=== PATIENT | female | born 1965 ===

== ENCOUNTER 2019-03-01 10:07 | Observation (INO) | payer OTHER ==
--- NOTE | 2019-03-01 10:41 | PDOC ---
History of Present Illness - General Chief Complaint: Chest Pain Stated Complaint: LOWER BACK PAIN Time Seen by Provider: 03/01/19 10:41 - History of Present Illness Initial Comments: 03/01/19 10:43 53 year old female, with a significant past medical history of HTN (now compliant on lisinopril 10 daily) who presents with 3 days of back pain radiating to the chest that is pressure like and waxes and wanes. The patient reports some associated nausea but denies diaphoresis or lightheadedness. She reports a cough for 1 month but denies any recent fever, n/v/d/c, abdominal pain or any other complaints. ROS GENERAL/CONSTITUTIONAL: No fever or chills. No weakness. HEAD, EYES, EARS, NOSE AND THROAT: No sore throat. CARDIOVASCULAR: +chest pain, No shortness of breath RESPIRATORY: No cough, wheezing, or hemoptysis. GASTROINTESTINAL: No nausea, vomiting, diarrhea or constipation. GENITOURINARY: No dysuria, frequency, or change in urination. MUSCULOSKELETAL: No joint or muscle swelling or pain. No neck or back pain. SKIN: No rash NEUROLOGIC: No headache, vertigo, loss of consciousness, or change in strength/ sensation. ENDOCRINE: No increased thirst. No abnormal weight change HEMATOLOGIC/LYMPHATIC: No anemia, easy bleeding, or history of blood clots. PE GENERAL: Awake, alert, and fully oriented, in no acute distress HEAD: No signs of trauma, normocephalic, atraumatic EYES: EOMI, sclera anicteric, conjunctiva clear ENT: oropharynx clear without exudates. Moist mucosa NECK: Normal ROM, supple LUNGS: No distress, speaks full sentences, clear to auscultation bilaterally HEART: Regular rate and rhythm, normal S1 and S2, no murmurs, rubs or gallops, peripheral pulses normal and equal bilaterally. ABDOMEN: Soft, nontender. No guarding, no rebound. No masses BACK: nontender to palpation EXTREMITIES : Normal inspection, Normal range of motion, no edema. No clubbing or cyanosis. NEUROLOGICAL: Cranial nerves II through XII grossly intact. Normal speech, no focal sensorimotor deficits SKIN: Warm, Dry, normal turgor, no rashes or lesions noted MDM DDX including but not limited to: pleuritic pain r/o acs r/o dissection ED Course: labs wnl CT chest -negative for dissection Plan for admission as patient with chest pain and HTN will keep on tele and have cardiology rebeca Toro PGY2 Emergency Medicine Past History - Past Medical History Allergies/Adverse Reactions: Allergies Allergy/AdvReac Type Severity Reaction Status Date / Time No Known Allergies Allergy Verified 03/01/19 10:22 Home Medications: Ambulatory Orders Lisinopril 10 mg PO DAILY 03/01/19 COPD: No HTN: Yes - Psycho Social/Smoking Cessation Hx Smoking History: Never smoked Have you smoked in the past 12 months: No Hx Alcohol Use: Yes Drug/Substance Use Hx: No Substance Use Type: None *Physical Exam - Vital Signs Last Vital Signs Temp Pulse Resp BP Pulse Ox 98.0 F 76 16 187/77 H 100 03/01/19 10:16 03/01/19 10:16 03/01/19 10:16 03/01/19 10:37 03/01/19 10:16 ED Treatment Course - LABORATORY CBC & Chemistry Diagram: 03/01/19 11:00 03/01/19 10:44
[2019-03-01] MEDS ORDERED: LABETALOL HCL 5 MG/1 ML (100MG/20 ML VIAL) IVPUSH ONE (11:01)
[2019-03-01 11:06] LABS: BASO % 0.7 % (0-2.0); EOS % 1.2 % (0-4.5); HEMATOCRIT 40.2 % (32.4-45.2); HEMOGLOBIN 13.4 GM/dL (10.7-15.3); LYMPH % 27.6 % (8-40); MCH 29.1 pg (25.7-33.7); MCHC 33.5 g/dl (32.0-36.0); MEAN CELL VOLUME 87.1 fl (80-96); MEAN PLT VOLUME 8.5 fl (7.5-11.1); MONO % 5.1 % (3.8-10.2); NEUT % 65.4 % (42.8-82.8); PLATELET COUNT 314 K/MM3 (134-434); RBC 4.61 M/mm3 (3.60-5.2); RDW 13.3 % (11.6-15.6)
[2019-03-01 11:17] LABS: HCG,QUALITATIVE URINE Negative
[2019-03-01 11:19] LABS: EPI CELLS 1.7 /HPF (0-5/HPF); HYALINE CASTS 1 /lpf (0-8); URINE APPEARANCE CLEAR; URINE BACTERIA 37.2 /hpf (NEGATIVE); URINE BILIRUBIN NEGATIVE (NEGATIVE); URINE COLOR YELLOW; URINE GLUCOSE (UA) NEGATIVE (NEGATIVE); URINE KETONE NEGATIVE (NEGATIVE); URINE LEUK ESTERASE 1+ (NEGATIVE); URINE NITRITE NEGATIVE (NEGATIVE); URINE PROTEIN NEGATIVE (NEGATIVE); URINE RBC 0 /hpf (0-4); URINE UROBILINOGEN 0.2 mg/dL (0.2-1.0); URINE WBC 5 /hpf (0-5)
--- NOTE | 2019-03-01 11:34 | PDOC ---
Documentation entered by Latrice Sanchez SCRIBE, acting as scribe for Wilmer Carnes MD. Wilmer Carnes MD: This documentation has been prepared by the Daniel velázquez Brenda, SCRIBE, under my direction and personally reviewed by me in its entirety. I confirm that the documentation accurately reflects all work, treatment, procedures, and medical decision making performed by me. Attending Attestation - Resident Resident Name: Chanell Toro - ED Attending Attestation I have performed the following: I have examined & evaluated the patient, The case was reviewed & discussed with the resident, I agree w/resident's findings & plan, Exceptions are as noted - HPI HPI: 03/01/19 10:59 53y F hx of htn presents with back pain for the past 3 days that radiates to the chest, that waxes and wanes. Patient states that her lab's episode of pain started this morning when she was sleeping, and has since resolved. The patient denies any associated focal numbness, tingling, weakness, diaphoresis, shortness of breath. The patient does endorse having mild nausea with her pain. The pain seems to come intermittently and randomly it is not associated with movement, exertion, leg swelling, coughing, hemoptysis, fever, chills. Patient does endorse having similar pain in the past. pt is currently asymptomatic. Upon arrival the patient was noted to be significantly hypertensive. Patient states she is compliant with medications. PMD:S Alisha Physical Exam: GENERAL: The patient is awake, alert, and fully oriented, Nontoxic - in no acute distress. HEAD: Normocephalic, atraumatic. EYES: extraocular movements intact, sclera anicteric, conjunctiva clear. ENT: Normal voice, Moist mucous membranes. NECK: Normal range of motion, supple LUNGS: Breath sounds equal, clear to auscultation bilaterally. No wheezes, no rhonchi, no rales. HEART: Regular rate and rhythm, normal S1 and S2 without murmur, rub or gallop. ABDOMEN: Soft, nontender, No guarding, no rebound. No CVA tenderness EXTREMITIES: Normal range of motion, no edema. Moving all 4 extremities spontaneously and symmetrically NEUROLOGICAL: No facial assymetry, Normal speech, PSYCH: Normal mood, normal affect. SKIN: Warm, Dry, normal turgor, Differential for the patient's symptoms includes hypertensive emergency, ACS, aortic dissection, pancreatitis. Will obtain blood work, chest x-ray anticipate CTA to screen for dissection We will give the patient labetalol for blood pressure control Heart Score/ECG Review - ECG Impressions Comment:: 03/01/19 11:33 Twelve-lead EKG was performed and reviewed by me. There is normal sinus rhythm with a normal rate. rate of 73 The axis is normal. The intervals are normal. There is normal R wave progression There are no ST or T wave abnormalities. Impression: Normal twelve-lead EKG
[2019-03-01 11:50] LABS: ALBUMIN 3.7 g/dl (3.4-5.0); BILIRUBIN,TOTAL 0.6 mg/dL (0.2-1); BLOOD UREA NITROGEN 10.5 mg/dL (7-18); CALCIUM 8.9 mg/dL (8.5-10.1); CREATININE 0.5 mg/dL (0.55-1.3); POTASSIUM 3.9 mmol/L (3.5-5.1)
[2019-03-01] MEDS ORDERED: amLODIPine BESYLATE 5 MG TABLET (FP) PO ONE (16:06)
[2019-03-01] MEDS ORDERED: amLODIPine BESYLATE 5 MG TABLET (FP) ONE (16:10)
--- NOTE | 2019-03-01 17:09 | HP ---
CHIEF COMPLAINT: back pain, chest pain PCP: HISTORY OF PRESENT ILLNESS: Patient is a 53 year old female with history of hypertension presents with complaint of back pain. Patient endorses pain has been ongoing for the past three days without clear inciting features. States pain radiates to her right sided chest. Endorses the pain is worsened with non-productive cough. She admits taking Ibuprofen yesterday which was temporarily palliative. Pain occurs during rest, as well as exertion however is not associated with shortness of breath. Denies subjective fevers, chills, shortness of breath, palpitations, abdominal pain, nausea, vomiting. Currently, patient denies any chest pain. ER course was notable for: (1) BP 205/ 99 -> 166/ 85 (2) EKG reveals normal sinus rhythm at 73BPM. Initial troponin 0,02 (3) Recent Travel: denies PAST MEDICAL HISTORY: hypertension PAST SURGICAL HISTORY: denies Social History: Lives with her son. Smoking: Alcohol: Drugs: Allergies No Known Allergies Allergy (Verified 03/01/19 10:22) HOME MEDICATIONS: Home Medications Medication Instructions Recorded Lisinopril 10 mg PO DAILY 03/01/19 REVIEW OF SYSTEMS CONSTITUTIONAL: Absent: fever, chills, diaphoresis, generalized weakness, malaise, loss of appetite, weight change HEENT: Absent: rhinorrhea, nasal congestion, throat pain, throat swelling, difficulty swallowing, mouth swelling, ear pain, eye pain, visual changes CARDIOVASCULAR: Absent: chest pain, syncope, palpitations, irregular heart rate, lightheadedness , peripheral edema RESPIRATORY: Absent: cough, shortness of breath, dyspnea with exertion, orthopnea, wheezing, stridor, hemoptysis GASTROINTESTINAL: Absent: abdominal pain, abdominal distension, nausea, vomiting, diarrhea, constipation, melena, hematochezia GENITOURINARY: Absent: dysuria, frequency, urgency, hesitancy, hematuria, flank pain, genital pain MUSCULOSKELETAL: Absent: myalgia, arthralgia, joint swelling, back pain, neck pain SKIN: Absent: rash, itching, pallor HEMATOLOGIC/IMMUNOLOGIC: Absent: easy bleeding, easy bruising, lymphadenopathy, frequent infections ENDOCRINE: Absent: unexplained weight gain, unexplained weight loss, heat intolerance, cold intolerance NEUROLOGIC: Absent: headache, focal weakness or paresthesias, dizziness, unsteady gait, seizure, mental status changes, bladder or bowel incontinence PSYCHIATRIC: Absent: anxiety, depression, suicidal or homicidal ideation, hallucinations. PHYSICAL EXAMINATION Vital Signs - 24 hr 03/01/19 03/01/19 03/01/19 10:16 10:37 11:18 Temperature 98.0 F Pulse Rate 76 Pulse Rate [ Left] Respiratory 16 Rate Blood Pressure 205/99 H Blood Pressure 187/77 H 168/76 [Left Arm] O2 Sat by Pulse 100 Oximetry (%) 03/01/19 03/01/19 03/01/19 11:36 12:14 14:47 Temperature 97.7 F Pulse Rate Pulse Rate [ 68 Left] Respiratory 18 Rate Blood Pressure Blood Pressure 147/69 173/91 H 166/85 [Left Arm] O2 Sat by Pulse 98 Oximetry (%) GENERAL: Awake, alert, and fully oriented, in no acute distress. HEAD: Normal with no signs of trauma. EYES: Pupils equal, round and reactive to light, extraocular movements intact, sclera anicteric, conjunctiva clear. No lid lag. EARS, NOSE, THROAT: Ears normal, nares patent, oropharynx clear without exudates. Moist mucous membranes. NECK: Normal range of motion, supple without lymphadenopathy, JVD, or masses. LUNGS: Breath sounds equal, clear to auscultation bilaterally. No wheezes, and no crackles. No accessory muscle use. HEART: Regular rate and rhythm, normal S1 and S2 without murmur, rub or gallop. ABDOMEN: Soft, nontender, not distended, normoactive bowel sounds, no guarding, no rebound, no masses. No hepatomegaly or splenomegaly. MUSCULOSKELETAL: Normal range of motion at all joints. No bony deformities or tenderness. No CVA tenderness. UPPER EXTREMITIES: 2+ pulses, warm, well-perfused. No cyanosis. No clubbing. No peripheral edema. LOWER EXTREMITIES: 2+ pulses, warm, well-perfused. No calf tenderness. No peripheral edema. NEUROLOGICAL: Cranial nerves II-XII intact. Normal speech. Normal gait. PSYCHIATRIC: Cooperative. Good eye contact. Appropriate mood and affect. SKIN: Warm, dry, normal turgor, no rashes or lesions noted, normal capillary refill. Laboratory Results - last 24 hr 03/01/19 03/01/19 03/01/19 10:44 11:00 11:05 WBC 10.0 RBC 4.61 Hgb 13.4 Hct 40.2 MCV 87.1 MCH 29.1 MCHC 33.5 RDW 13.3 Plt Count 314 MPV 8.5 Absolute Neuts (auto) 6.6 Neutrophils % 65.4 Lymphocytes % 27.6 D Monocytes % 5.1 Eosinophils % 1.2 D Basophils % 0.7 Nucleated RBC % 0 Sodium 139 Potassium 3.9 Chloride 108 H Carbon Dioxide 24 Anion Gap 7 L BUN 10.5 Creatinine 0.5 L Est GFR (CKD-EPI)AfAm 128.07 Est GFR (CKD-EPI)NonAf 110.50 Random Glucose 94 Calcium 8.9 Total Bilirubin 0.6 AST 25 ALT 37 Alkaline Phosphatase 114 Creatine Kinase 304 H Creatine Kinase Index 1.4 CK-MB (CK-2) 4.4 H Troponin I 0.04 Total Protein 8.0 Albumin 3.7 Lipase 173 Urine Color Yellow Urine Appearance Clear Urine pH 6.0 Ur Specific [place] 1.008 L Urine Protein Negative Urine Glucose (UA) Negative Urine Ketones Negative Urine Blood Negative Urine Nitrite Negative Urine Bilirubin Negative Urine Urobilinogen 0.2 Ur Leukocyte Esterase 1+ H Urine WBC (Auto) 5 Urine RBC (Auto) 0 Urine Casts (Auto) 1 U Epithel Cells (Auto) 1.7 Urine Bacteria (Auto) 37.2 Urine HCG, Qual Negative 03/01/19 14:28 WBC RBC Hgb Hct MCV MCH MCHC RDW Plt Count MPV Absolute Neuts (auto) Neutrophils % Lymphocytes % Monocytes % Eosinophils % Basophils % Nucleated RBC % Sodium Potassium Chloride Carbon Dioxide Anion Gap BUN Creatinine Est GFR (CKD-EPI)AfAm Est GFR (CKD-EPI)NonAf Random Glucose Calcium Total Bilirubin AST ALT Alkaline Phosphatase Creatine Kinase Creatine Kinase Index CK-MB (CK-2) Troponin I 0.03 Total Protein Albumin Lipase Urine Color Urine Appearance Urine pH Ur Specific [place] Urine Protein Urine Glucose (UA) Urine Ketones Urine Blood Urine Nitrite Urine Bilirubin Urine Urobilinogen Ur Leukocyte Esterase Urine WBC (Auto) Urine RBC (Auto) Urine Casts (Auto) U Epithel Cells (Auto) Urine Bacteria (Auto) Urine HCG, Qual ASSESSMENT/PLAN: Patient is a 53 year old female with history of hypertension presents with complaint of back pain, chest pain. Hypertensive urgency -Patient presented with BP 205/99 that resolved to 166/ 85 with Labetalol. Patient endorsed chest pain at that time, however has resolved upon my encounter -Troponin 0,04, 0.03. Will obtain additional Troponin to document three negative -EKG reveals normal sinus rhythm at 73BPM. Negative ischemic changes -Lisinopril increased to 40mg PO daily -Begin Amlodipine 5mg PO daily. -Continue cardiac telemetery monitoring -Cardiology evaluation (Dr. Macdonald) appreciated -Cardiac transthoracic ECHO Atypical chest pain -Currently resolved. Not reproducible upon palpation. -Cardiac monitoring, Cardiology evaluation (Dr. Rooney) FEN -No IV fluids indicated -Follow BMP -Sodium modified diet Prophylaxis -Lovenox 40mg subq daily Disposition -Telemetry observation. Visit type - Emergency Visit Emergency Visit: Yes ED Registration Date: 03/01/19 Care time: The patient presented to the Emergency Department on the above date and was hospitalized for further evaluation of their emergent condition. - New Patient This patient is new to me today: Yes Date on this admission: 03/01/19 - Critical Care Critical Care patient: No ATTENDING PHYSICIAN STATEMENT I saw and evaluated the patient. I reviewed the resident's note and discussed the case with the resident. I agree with the resident's findings and plan as documented. SUBJECTIVE: OBJECTIVE: ASSESSMENT AND PLAN:
[2019-03-01] MEDS: amLODIPine BESYLATE 5 MG TABLET (FP) PO SCH (17:17)
--- NOTE | 2019-03-01 18:01 | PN ---
Teaching Attending Note Name of Resident: Frederic Shay ATTENDING PHYSICIAN STATEMENT I saw and evaluated the patient. I reviewed the resident's note and discussed the case with the resident. I agree with the resident's findings and plan as documented. SUBJECTIVE: Chest pain resolved. Denies any palpitations, headache, lightheadedness, dizziness, nausea, vomiting. OBJECTIVE: Afebrile, Hemodynamically Stable. Last Vital Signs Temp Pulse Resp BP Pulse Ox 97.7 F 68 18 166/85 98 03/01/19 14:47 03/01/19 14:47 03/01/19 14:47 03/01/19 14:47 03/01/19 14:47 HEENT - Atraumatic, Normocephalic. Heart - S1, S2, SM Lungs - clear to auscultation Abdomen - Soft, non-tender. Bowel Sounds normal. Extremities - no edema, no calf tenderness. Neuro - AAO x 3. tone/Power normal all extremities. Laboratory Results - last 24 hr 03/01/19 03/01/19 03/01/19 10:44 11:00 11:05 WBC 10.0 RBC 4.61 Hgb 13.4 Hct 40.2 MCV 87.1 MCH 29.1 MCHC 33.5 RDW 13.3 Plt Count 314 MPV 8.5 Absolute Neuts (auto) 6.6 Neutrophils % 65.4 Lymphocytes % 27.6 D Monocytes % 5.1 Eosinophils % 1.2 D Basophils % 0.7 Nucleated RBC % 0 Sodium 139 Potassium 3.9 Chloride 108 H Carbon Dioxide 24 Anion Gap 7 L BUN 10.5 Creatinine 0.5 L Est GFR (CKD-EPI)AfAm 128.07 Est GFR (CKD-EPI)NonAf 110.50 Random Glucose 94 Calcium 8.9 Total Bilirubin 0.6 AST 25 ALT 37 Alkaline Phosphatase 114 Creatine Kinase 304 H Creatine Kinase Index 1.4 CK-MB (CK-2) 4.4 H Troponin I 0.04 Total Protein 8.0 Albumin 3.7 Lipase 173 Urine Color Yellow Urine Appearance Clear Urine pH 6.0 Ur Specific [place] 1.008 L Urine Protein Negative Urine Glucose (UA) Negative Urine Ketones Negative Urine Blood Negative Urine Nitrite Negative Urine Bilirubin Negative Urine Urobilinogen 0.2 Ur Leukocyte Esterase 1+ H Urine WBC (Auto) 5 Urine RBC (Auto) 0 Urine Casts (Auto) 1 U Epithel Cells (Auto) 1.7 Urine Bacteria (Auto) 37.2 Urine HCG, Qual Negative 03/01/19 14:28 WBC RBC Hgb Hct MCV MCH MCHC RDW Plt Count MPV Absolute Neuts (auto) Neutrophils % Lymphocytes % Monocytes % Eosinophils % Basophils % Nucleated RBC % Sodium Potassium Chloride Carbon Dioxide Anion Gap BUN Creatinine Est GFR (CKD-EPI)AfAm Est GFR (CKD-EPI)NonAf Random Glucose Calcium Total Bilirubin AST ALT Alkaline Phosphatase Creatine Kinase Creatine Kinase Index CK-MB (CK-2) Troponin I 0.03 Total Protein Albumin Lipase Urine Color Urine Appearance Urine pH Ur Specific [place] Urine Protein Urine Glucose (UA) Urine Ketones Urine Blood Urine Nitrite Urine Bilirubin Urine Urobilinogen Ur Leukocyte Esterase Urine WBC (Auto) Urine RBC (Auto) Urine Casts (Auto) U Epithel Cells (Auto) Urine Bacteria (Auto) Urine HCG, Qual Current Medications Generic Name Dose Route Start Last Admin Trade Name Freq PRN Reason Stop Dose Admin Amlodipine Besylate 5 mg 03/01/19 17:15 03/01/19 17:17 Norvasc - PO Not Given DAILY [facility] Enoxaparin Sodium 40 mg 03/02/19 10:00 Lovenox - SQ DAILY [facility] Lisinopril 40 mg 03/02/19 10:00 Prinivil PO DAILY [facility] Home Medications Medication Instructions Recorded Lisinopril 10 mg PO DAILY 03/01/19 ASSESSMENT AND PLAN: 53 year old female with history of HTN, presents with chest pain, found to have uncontrolled HTN, responded to IV Labetolol, with resolution of chest discomfort. No palpitations, lightheadedness, SOB, nausea. vomiting, diaphoresis. No fever/chills. 1. Uncontrolled HTN Normally on Lisinopril 10mg. Last BP check at PCP 1 month ago, mildly elevated at that time as per patient. Will increase Lisinopril to 40mg and add Norvasc 5mg TSH Telemonitoring 2. Atypical CP, resolved. ECG - NSR, rate 73, no acute changes Trop I neg, will trend. Echo requested. Telemoniotring overnight DVT Px - Lovenox SQ
[2019-03-01 20:49] VITALS: BMI 32.9
[2019-03-01] MEDS ORDERED: IBUPROFEN 400 MG TABLET (FP) PO ONE (20:58)
[2019-03-01] MEDS ORDERED: PT OWN MED DRAWER 7, Y5N ONE (21:03)
[2019-03-02 06:19] LABS: HEMATOCRIT 40.9 % (32.4-45.2); HEMOGLOBIN 13.7 GM/dL (10.7-15.3); MCHC 33.6 g/dl (32.0-36.0); MEAN CELL VOLUME 86.5 fl (80-96); MEAN PLT VOLUME 9.4 fl (7.5-11.1); PLATELET COUNT 308 K/MM3 (134-434); RBC 4.73 M/mm3 (3.60-5.2); RDW 13.6 % (11.6-15.6); WHITE BLOOD COUNT 9.5 K/mm3 (4.0-10.0)
[2019-03-02 06:50] LABS: BLOOD UREA NITROGEN 7.7 mg/dL (7-18); CALCIUM 9.1 mg/dL (8.5-10.1); CREATININE 0.5 mg/dL (0.55-1.3); POTASSIUM 3.9 mmol/L (3.5-5.1)
[2019-03-02] MEDS: amLODIPine BESYLATE 5 MG TABLET (FP) PO SCH (09:23)
[2019-03-02] MEDS: LISINOPRIL 20 MG TABLET (FP) PO SCH (09:23)
[2019-03-02] MEDS: ENOXAPARIN NA (PORCINE) 40 MG/0.4 ML DISP.SYRIN SQ SCH (09:23)
--- NOTE | 2019-03-02 11:24 | CON.CARD ---
Consult Consult Specialty:: Cardiology Referred by:: Medicine Reason for Consultation:: chest pain, HTN - History of Present Illness Chief Complaint: chest pain History of Present Illness: 53F h/o HTN p/w back pain. Has had pain for the last few days prior to admission, radiating to R chest, worse with coughing. Has kurtis taking ibuprofen prior to admission. BP in ER 205/99. Chest and back pain now resolved, no dyspnea, palps, dizziness, edema. - Past Medical History ...LMP: 08/27/18 ...: No - Alcohol/Substance Use Hx Alcohol Use: Yes (social) - Smoking History Smoking history: Never smoked Have you smoked in the past 12 months: No Home Medications - Allergies Allergies/Adverse Reactions: Allergies Allergy/AdvReac Type Severity Reaction Status Date / Time No Known Allergies Allergy Verified 03/01/19 10:22 - Home Medications Home Medications: Ambulatory Orders Lisinopril 10 mg PO DAILY 03/01/19 Family Medical History Family History: Unremarkable Review of Systems - Review of Systems Constitutional: reports: No Symptoms Eyes: reports: No Symptoms HENT: reports: No Symptoms Neck: reports: No Symptoms Cardiovascular: reports: No Symptoms Respiratory: reports: No Symptoms Gastrointestinal: reports: No Symptoms Genitourinary: reports: No Symptoms Musculoskeletal: reports: No Symptoms Integumentary: reports: No Symptoms Neurological: reports: No Symptoms Endocrine: reports: No Symptoms Hematology/Lymphatic: reports: No Symptoms Psychiatric: reports: No Symptoms Vital Signs: Vital Signs Temperature 98.4 F 03/02/19 09:54 Pulse Rate 75 03/02/19 09:54 Respiratory Rate 20 03/02/19 09:54 Blood Pressure 193/84 H 03/02/19 09:54 O2 Sat by Pulse Oximetry (%) 98 03/02/19 09:55 Constitutional: Yes: No Distress, Calm Eyes: Yes: Conjunctiva Clear, EOM Intact HENT: Yes: Atraumatic, Normocephalic Neck: Yes: Supple, Trachea Midline Respiratory: Yes: Regular, CTA Bilaterally Gastrointestinal: Yes: Normal Bowel Sounds, Soft Cardiovascular: Yes: Regular Rate and Rhythm JVD: No Heart Sounds: Yes: S1, S2 Extremities: No: Cold Edema: No Integumentary: No: Jaundice Neurological: Yes: Alert, Oriented Psychiatric: No: Agitated - Other Data Labs, Other Data: CBC, BMP 03/02/19 05:20 03/02/19 05:20 Troponin, BNP 03/01/19 03/01/19 03/01/19 10:44 14:28 21:45 Troponin I 0.04 0.03 0.04 Troponin, BNP 03/01/19 03/01/19 03/01/19 10:44 14:28 21:45 Troponin I 0.04 0.03 0.04 Assessment/Plan EKG: sinus, nl intervals, no ischemic changes CTA chest: no dissection tele: sinus chest pain - trop neg x 3, EKG no ischemic changes - unlikely ACS - CTA chest no dissection - echo pending - atypical symptoms, however will evaluate with nuclear stress test given age, risk factors hypertensive urgency - lisinopril increased to 40 mg daily - amlodipine 5 mg started - monitor BP, uptitrate meds as tolerated
[2019-03-02] MEDS ORDERED: ACETAMINOPHEN 325 MG TABLET (FP) PO PRN (11:58)
--- NOTE | 2019-03-02 13:04 | ECHO ---
Name: CABEZAS, RENETTA Exam:Adult Echocardiogram Study Date: 03/02/2019 09:38 AM Age: 53 yrs Height: 58 in Weight: 160 lb BSA: 1.7 m2 MMode/2D Measurements & Calculations IVSd: 1.0 cm Ao root diam: 2.1 cm LVIDd: 3.7 cm LA dimension: 3.6 cm LVIDs: 2.4 cm ACS: 1.7 cm LVPWd: 1.1 cm EDV(Teich): 57.4 ml LVOT diam: 1.9 cm ESV(Teich): 19.2 ml RV S Manjit: 17.7 cm/sec Doppler Measurements & Calculations MV E max manjit: 72.1 cm/sec Ao V2 max: 196.8 cm/sec MV A max manjit: 107.1 cm/sec Ao max P.5 mmHg MV E/A: 0.67 Ao V2 mean: 140.3 cm/sec MV dec time: 0.19 sec Ao mean P.7 mmHg Ao V2 VTI: 42.5 cm TAMMY(I,D): 1.5 cm2 AI P1/2t: 923.3 msec TAMMY(V,D): 1.5 cm2 AI max manjit: 477.8 cm/sec LV V1 max P.6 mmHg AI max P.3 mmHg LV V1 mean P.7 mmHg AI dec slope: 151.6 cm/sec2 LV V1 max: 106.9 cm/sec LV V1 mean: 78.8 cm/sec LV V1 VTI: 23.9 cm SV(LVOT): 65.5 ml TR max manjit: 204.4 cm/sec TR max P.8 mmHg PA V2 max: 85.4 cm/sec Med Peak E' Manjit: 6.1 cm/sec PA max P.9 mmHg Med E/e': 11.8 Lat Peak E' Manjit: 7.7 cm/sec Lat E/e': 9.4 Procedure A two-dimensional transthoracic echocardiogram with color flow and Doppler was performed. The study w as technically difficult with many images being suboptimal in quality. The patient was in normal sinus r hythm during the exam. Left Ventricle Left ventricular systolic function is normal. Ejection Fraction = 65-70%. E/A reversal consistent wit h but not diagnostic of poor LV compliance. Right Ventricle The right ventricle is normal size. The right ventricular systolic function is normal. Atria Normal left and right atrial size and function. Mitral Valve The mitral valve is normal. There is trace mitral regurgitation. Tricuspid Valve The tricuspid valve is normal. There is trace tricuspid regurgitation. Right ventricular systolic pre ssure is normal. Aortic Valve The aortic valve is not well visualized. There is mild aortic sclerosis.;. The aortic valve opens wel l. The aortic valve is trileaflet. No hemodynamically significant valvular aortic stenosis. Mild aortic regurgitation. Pulmonic Valve The pulmonic valve is not well visualized. The pulmonic valve is not well seen, but is grossly normal . There is no pulmonic valvular regurgitation. Great Vessels The aortic root is normal size. Pericardium/Pleura There is no pericardial effusion. Interpretation Summary Left ventricular systolic function is normal. E/A reversal consistent with but not diagnostic of poor LV compliance The right ventricular systolic function is normal. There is trace mitral regurgitation. There is trace tricuspid regurgitation. There is mild aortic sclerosis.; No hemodynamically significant valvular aortic stenosis. Mild aortic regurgitation. There is no pericardial effusion. MD Jose Torres 03/02/2019 01:03 PM
--- NOTE | 2019-03-02 13:46 | EKG ---
Test Reason : Blood Pressure : / mmHG Vent. Rate : 073 BPM Atrial Rate : 073 BPM P-R Int : 146 ms QRS Dur : 086 ms QT Int : 410 ms P-R-T Axes : 050 025 026 degrees QTc Int : 451 ms NORMAL SINUS RHYTHM NORMAL ECG WHEN COMPARED WITH ECG OF 28-AUG-2017 02:22, NO SIGNIFICANT CHANGE WAS FOUND Confirmed by MD MELO, TANIA ([id number]) on 03/02/2019 1:46:25 PM Referred By: Confirmed By:TANIA ALEJO MD
[2019-03-02] MEDS ORDERED: amLODIPine BESYLATE 5 MG TABLET (FP) PO ONE (17:04)
--- NOTE | 2019-03-02 18:05 | PN ---
Teaching Attending Note Name of Resident: Gladys Robbins ATTENDING PHYSICIAN STATEMENT I saw and evaluated the patient. I reviewed the resident's note and discussed the case with the resident. I agree with the resident's findings and plan as documented. SUBJECTIVE: No fever or chills. No ARIAS. No CP. feels better OBJECTIVE: NAD Cv : RRR Lungs: CTAB Ext : No edema or erythema ASSESSMENT AND PLAN: 53 y/o man with h/o HTN who presented with CP nad was found to have HTN urgency 1- CP: atypical 2- HTN urgency Plan : - cont lisinopril and noravsc . if needed Norvasc can be increased - echo reviewed. - CTA reviewed. - Second half of stress test tomorrow - Lovenox for DVT px
[2019-03-02] MEDS ORDERED: IBUPROFEN 400 MG TABLET (FP) PO PRN (18:07)
--- NOTE | 2019-03-02 19:57 | PN ---
Physical Exam: SUBJECTIVE: Patient seen and examined. Patient complains of back pain that radiates to her RUQ. Only complains of chest pain when coughing. Denies SOB, fever, chills, N/V/D. OBJECTIVE: Vital Signs Period Temp Pulse Resp BP Sys/Morgan Pulse Ox Last 24 Hr 98 F-99.2 F 66-81 18-22 150-193/78-89 96-99 GENERAL: The patient is awake, alert, and fully oriented, in no acute distress. HEAD: Normal with no signs of trauma. EYES: EOMI, no scleral icterus ENT: MMM NECK: Trachea midline, full range of motion, supple. LUNGS: CTA B/L, no accessory muscle use HEART: Regular rate and rhythm, S1, S2 without murmur, rub or gallop. CHEST: no reproducible tenderness to palpation ABDOMEN: Soft, nondistended, normoactive bowel sounds, no guarding. Mild RUQ tenderness to palpation EXTREMITIES: 2+ pulses, warm, well-perfused, no edema. NEUROLOGICAL: Normal speech, gait not observed. PSYCH: Normal mood, normal affect. SKIN: Warm, dry, normal turgor, no rashes or lesions noted Laboratory Results - last 24 hr 03/01/19 03/02/19 03/02/19 21:45 05:20 05:20 WBC 9.5 RBC 4.73 Hgb 13.7 Hct 40.9 MCV 86.5 MCH 29.0 MCHC 33.6 RDW 13.6 Plt Count 308 MPV 9.4 D Sodium 137 Potassium 3.9 Chloride 104 Carbon Dioxide 25 Anion Gap 8 BUN 7.7 Creatinine 0.5 L Est GFR (CKD-EPI)AfAm 128.07 Est GFR (CKD-EPI)NonAf 110.50 Random Glucose 107 H Hemoglobin A1c % Calcium 9.1 Creatine Kinase 217 H Creatine Kinase Index 1.3 CK-MB (CK-2) 2.9 Troponin I 0.04 03/02/19 05:20 WBC RBC Hgb Hct MCV MCH MCHC RDW Plt Count MPV Sodium Potassium Chloride Carbon Dioxide Anion Gap BUN Creatinine Est GFR (CKD-EPI)AfAm Est GFR (CKD-EPI)NonAf Random Glucose Hemoglobin A1c % 5.7 Calcium Creatine Kinase Creatine Kinase Index CK-MB (CK-2) Troponin I Active Medications Generic Name Dose Route Start Last Admin Trade Name Freq PRN Reason Stop Dose Admin Amlodipine Besylate 10 mg 03/03/19 10:00 Norvasc - PO DAILY JESSICA Enoxaparin Sodium 40 mg 03/02/19 10:00 03/02/19 09:23 Lovenox - SQ 40 mg DAILY JESSICA Administration Ibuprofen 400 mg 03/02/19 18:07 03/02/19 18:33 Motrin - PO 400 mg Q6H PRN Administration PAIN LEVEL 1-5 Lisinopril 40 mg 03/02/19 10:00 03/02/19 09:23 Prinivil PO 40 mg DAILY JESSICA Administration ASSESSMENT/PLAN: 53 y/o/f with PMHx of hypertension presented with complaint of back pain, chest pain. #Hypertensive urgency - Patient presented with BP 205/99. now improving - Trop negative x3 - EKG reveals normal sinus rhythm at 73BPM. Negative ischemic changes - Lisinopril increased to 40mg PO daily - Amlodipine increased to 10mg daily - Patient questionably on HCTZ vs Lisinopril at home - will try to clarify with pharmacy/PCP - Cardiology evaluation (Dr. Macdonald) appreciated - ECHO - no significant abnormalities - EF 65-70% - E/A reversal consistent with but not diagnostic for poor LV compliance. - CTA chest w/o evidence of dissection. Incidental findings of uterus fibroid, R ovarian cyst, cholelithiasis - RUQ U/S to rule out cholecystitis/biliary colic as patient complains of abd pain - Patient had part 1 of stress test today, part 2 tomorrow - Motrin for pain control #Atypical chest pain - now resolved - Not reproducible upon palpation. - Cardiac monitoring, Cardiology evaluation (Dr. Rooney) #FEN - No IV fluids indicated - Monitor and replete lytes as needed - Sodium modified diet #Prophylaxis - Lovenox 40mg subq daily #Disposition - D/C pending results of stress test, improvement in BP Visit type - Emergency Visit Emergency Visit: Yes ED Registration Date: 03/01/19 Care time: The patient presented to the Emergency Department on the above date and was hospitalized for further evaluation of their emergent condition. - New Patient This patient is new to me today: Yes Date on this admission: 03/02/19 - Critical Care Critical Care patient: No ATTENDING PHYSICIAN STATEMENT I saw and evaluated the patient. I reviewed the resident's note and discussed the case with the resident. I agree with the resident's findings and plan as documented. SUBJECTIVE: OBJECTIVE: ASSESSMENT AND PLAN:
--- NOTE | 2019-03-03 07:44 | PN ---
Teaching Attending Note ATTENDING PHYSICIAN STATEMENT I saw and evaluated the patient. I reviewed the resident's note and discussed the case with the resident. I agree with the resident's findings and plan as documented. SUBJECTIVE: Seen and examined; no new complaints 10 sys ROS done and negative aside from HPI OBJECTIVE: VS, labs, imaging reviewed NAD, AAO, resting comfortably in bed. RRR s1/2 no mgr Normal muscle tone, moves all 5 extremities with normal apparent strength Neck is supple, trachea midline, no [place] LN Lungs CTAB with sym expansion NT ND +BS no akosua organomegaly CN2-12 wnl; no FND NC AT EOMI PERRLA Normal mood, appropriate behavior, euthymic affect No skin breakdown or rashes noted Echocardiogram shows normal LV systolic function with E to a reversal consistent with poor LV compliance, trace MR, trace TR, mild aortic sclerosis, no hemodynamically significant valvular aortic stenosis, mild AR, no pericardial effusion Telemetry reviewed CTA reviewed EKG reviewed from admission, normal sinus rhythm, normal intervals, no ischemic changes noted ASSESSMENT AND PLAN: Patient presents with back pain rating to the right chest, hypertensive urgency , with resolved pain. Problems include: -Atypical chest pain (Pending NST; echo negative for wma's, troponin/EKG/tele negative. CTA negative for dissection) -Chronic Diastolic Dysfunction, no acute exacerbation -Chronic musculoskeletal back pain (no red flag symptoms, OP followup. PRN APAP , if persisting neuropathic symptoms can try anticonvulsant. Avoid further NSAIDs). 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
[2019-03-03 08:10] LABS: BLOOD UREA NITROGEN 9.7 mg/dL (7-18); CALCIUM 9.1 mg/dL (8.5-10.1); CREATININE 0.6 mg/dL (0.55-1.3); POTASSIUM 3.6 mmol/L (3.5-5.1)
[2019-03-03] MEDS: LISINOPRIL 20 MG TABLET (FP) PO SCH (09:19)
[2019-03-03] MEDS: ENOXAPARIN NA (PORCINE) 40 MG/0.4 ML DISP.SYRIN SQ SCH (09:20)
[2019-03-03] MEDS ORDERED: amLODIPine BESYLATE 10 MG TABLET (FP) PO SCH (10:00)
--- NOTE | 2019-03-03 15:23 | PN ---
Progress Note (short form) - Note Progress Note: s: no cp sob palps dizzy Current Medications Generic Name Dose Route Start Last Admin Trade Name Miloq PRN Reason Stop Dose Admin Amlodipine Besylate 10 mg 03/03/19 10:00 03/03/19 09:19 Norvasc - PO 10 mg DAILY JESSICA Administration Enoxaparin Sodium 40 mg 03/02/19 10:00 03/03/19 09:20 Lovenox - SQ 40 mg DAILY JESSICA Administration Ibuprofen 400 mg 03/02/19 18:07 03/02/19 18:33 Motrin - PO 400 mg Q6H PRN Administration PAIN LEVEL 1-5 Lisinopril 40 mg 03/02/19 10:00 03/03/19 09:19 Prinivil PO 40 mg DAILY JESSICA Administration Vital Signs Period Temp Pulse Resp BP Sys/Morgan Pulse Ox Last 24 Hr 78 F-99.2 F 75-86 18-22 134-176/73-86 94-95 Constitutional: Yes: No Distress, Calm Eyes: Yes: Conjunctiva Clear, EOM Intact HENT: Yes: Atraumatic, Normocephalic Neck: Yes: Supple, Trachea Midline Respiratory: Yes: Regular, CTA Bilaterally Gastrointestinal: Yes: Normal Bowel Sounds, Soft Cardiovascular: Yes: Regular Rate and Rhythm JVD: No Heart Sounds: Yes: S1, S2 Extremities: No: Cold Edema: No Integumentary: No: Jaundice Neurological: Yes: Alert, Oriented Psychiatric: No: Agitated - Other Data Labs, Other Data: CBC, BMP 03/02/19 05:20 03/03/19 06:30 Assessment/Plan EKG: sinus, nl intervals, no ischemic changes CTA chest: no dissection tele: sinus chest pain - trop neg x 3, EKG no ischemic changes - unlikely ACS - CTA chest no dissection - echo and nuclear stress test both unremarkable - cp resolved hypertensive urgency -bp improved on current meds. cardiac monterroso ok for dc
[2019-03-03 15:40] VITALS: BP 134/82; PULSE 96; TEMP 99.1
--- NOTE | 2019-03-03 18:44 | DS ---
Physical Exam: SUBJECTIVE: Patient seen and examined. No longer complaining of any pain. Denies chest pain, abd pain, back pain, fever, chills. Patient's BP is better controlled now. OBJECTIVE: Vital Signs Period Temp Pulse Resp BP Sys/Morgan Pulse Ox Last 24 Hr 78 F-99.1 F 78-96 18-18 134-151/73-85 94-95 PHYSICAL EXAM GENERAL: The patient is awake, alert, and fully oriented, in no acute distress. HEAD: Normal with no signs of trauma. EYES: EOMI, no scleral icterus, no ptosis ENT: MMM NECK: Trachea midline, full range of motion, supple. LUNGS: CTA B/L, no accessory muscle use HEART: Regular rate and rhythm, S1, S2 without murmur, rub or gallop. CHEST: no reproducible tenderness to palpation ABDOMEN: Soft, nondistended, nontender, normoactive bowel sounds, no guarding EXTREMITIES: 2+ pulses, warm, well-perfused, no edema. NEUROLOGICAL: Normal speech, gait not observed. PSYCH: Normal mood, normal affect. SKIN: Warm, dry, normal turgor, no rashes or lesions noted LABS Laboratory Results - last 24 hr 03/03/19 03/03/19 05:20 06:30 Sodium 137 Potassium 3.6 Chloride 104 Carbon Dioxide 25 Anion Gap 7 L BUN 9.7 Creatinine 0.6 Est GFR (CKD-EPI)AfAm 120.61 Est GFR (CKD-EPI)NonAf 104.06 Random Glucose 114 H Hemoglobin A1c % 6.1 Calcium 9.1 Triglycerides 89 Cholesterol 201 H Total LDL Cholesterol 133 H HDL Cholesterol 52 TSH 0.65 HOSPITAL COURSE: Date of Admission:03/01/19 Date of Discharge: 03/03/19 53 y/o/f with PMHx of hypertension presented with complaint of back pain, chest pain. Patient's BP was 205/99 on admission. Trop was negative x3 and EKG was negative for ischemic changes. Patient's medications were changed to Lisinopril 40mg daily and Amlodipine was started and uptitrated to 10mg. ECHO was completed without significant abnormalities, EF 65-70% - E/A reversal consistent with but not diagnostic for poor LV compliance. CTA was completed without evidence of dissection. Incidental findings of uterus fibroid, R ovarian cyst, and cholelithiasisn noted. Patient has treadmill stress test completed which was normal. Chest pain resolved and BP under better control at this time. Patient recommended to follow up with PCP, [facility], and cardiology after discharge. Sent home with prescription for Lisinopril and Amlodipine. Patient's cholesterol was elevated during this admission. Recommended to follow up and have lipid panel checked in 3 months and start statin at that time if still elevated. Patient stable for discharge at this time. Minutes to complete discharge: 36 Discharge Summary Problems reviewed: Yes Reason For Visit: CHEST PAIN Condition: Improved - Instructions Diet, Activity, Other Instructions: You presented to the hospital with high blood pressure and back pain that was ongoing for 3 days. You were found to have hypertensive urgency which improved after we started you on proper anti-hypertensive medications. You will be discharged on these medications. You came in with chest pain which resolved after we controlled your hypertension. You were seen by cardiology. Your heart enzymes were normal, you had a stress test done which was normal as well. You had imaging of your torso completed which did not show any acute issues. However , imaging showed cholelithiasis without obstruction and a fibroid uterus and a right ovarian cyst for which we recommend following up with an [facility] [employer] doctor. Your Cholesterol and LDL levels were found to be elevated. Medication Changes: 1. START Lisinopril 40mg daily for better blood pressure control. 2. START Amlodipine 10mg daily for better blood pressure control. 3. Please STOP taking you Hydrochlorothiazide (HCTZ) medication. Follow up labs: 1. Please have blood work to have your basic metabolic panel (BMP) checked to monitor your kidney function and electrolytes in 1-2 weeks. 2. Your cholesterol and LDL levels were found to be elevated during this admission, please have repeat lab work done to check your lipid panel in three months. If your levels are still elevated at that time then we recommend starting speaking with your primary care doctor and starting a statin medication. Follow up with the following physicians: 1. Please follow up with your primary care provider at [facility] within one week of discharge for further management of your medical conditions and to discuss the blood pressure medications that were started while you were in the hospital and to have your blood pressure checked. If you do not have a primary care doctor, a referral for [facility] group has been included for you. 2. Recommend follow up with your [facility] [employer] doctor within the next 2 weeks regarding the findings of a right ovarian cyst and fibroid uterus, if you do not have have an [facility] [employer] doctor you see regularly a referral for one has been included for you. 3. Recommend follow up with cardiology, a referral for the cardiology group you were seen by while in the hospital has been included for you. Please follow up within the next 3-5 days. Activity and Diet 1. You are being discharged home. Recommend daily exercise to strengthen your muscles. 2. Please monitor your diet as you need to consume a diet low in salt and fats and drink plenty of fluids. 3. Please continue to exercise as this will help lower your cholesterol and LDL levels. Continue all your other medications as prescribed Please return to the ER if you have any signs or symptoms of chest pain, shortness of breath, uncontrollable fever, chills, nausea, vomiting, numbness, tingling, or weakness in any part of your body, changes in vision, or slurred speech. Please return to the ER if symptoms persist, worsen, or new symptoms arise. Referrals: [facility] [place] [facility] [place] [Provider Group] Yogesh Rooney MD [Staff Physician] - Ana Christian MD [Staff Physician] - ON STAFF,NOT [Primary Care Provider] - Disposition: HOME - Home Medications Comprehensive Discharge Medication List: Ambulatory Orders Amlodipine Besylate [Norvasc -] 10 mg PO DAILY 30 Days #30 tablet 03/03/19 Lisinopril [Prinivil] 40 mg PO DAILY 30 Days #60 tablet 03/03/19 This patient is new to me today: Yes Date on this admission: 03/03/19 Emergency Visit: No Critical Care patient: No - Discharge Referral Referred to [facility] No ATTENDING PHYSICIAN STATEMENT I saw and evaluated the patient. I reviewed the resident's note and discussed the case with the resident. I agree with the resident's findings and plan as documented. SUBJECTIVE: OBJECTIVE: ASSESSMENT AND PLAN:
== END 2019-03-03 18:01 | disposition home or self-care (01) ==
LOC: JER 10:07 → JERBED 14:20 → J4S 20:16
PROVIDERS: ATTEND Internal Medicine
PROC: 3E033GC Introduction of Other Therapeutic Substance into Peripheral Vein, Percutaneous Approach (ICD-10-PCS; principal; 2019-03-01)
PROC: 3E013GC Introduction of Other Therapeutic Substance into Subcutaneous Tissue, Percutaneous Approach (ICD-10-PCS; 2019-03-01)
DX: I16.0 Hypertensive urgency (principal); R07.89 Other chest pain; M54.9 Dorsalgia, unspecified; D25.9 Leiomyoma of uterus, unspecified; N83.201 Unspecified ovarian cyst, right side; K80.20 Calculus of gallbladder without cholecystitis without obstruction
CPT/HCPCS: 36415; 71045-TC-FY; 71275-TC; 74174-TC; 78452-TC; 80048; 80053; 80061; 81003; 82550; 82553; 83036; 83690; 83721; 84443; 84484; 84703; 85025; 85027; 93005; 93010; 93017; 93306-TC; 96372; 96374; 97116-GP; 97161-GP; 99285-25; A9502; G0378; Q9967